=== PATIENT | female | born 1975 | race American Indian/Alaskan Native ===

== ENCOUNTER 2021-08-06 08:20 | Day surgery (SDC) | payer MEDICAID, OTHER ==
[~2021-08-06 08:20] MED LIST: SODIUM CHLORIDE 0.9% IRRIG SOLN 2000 ML IR ONE
[2021-08-06] MEDS ORDERED: LACTATED RINGERS 1,000 ML ONE (08:38)
--- NOTE | 2021-08-06 08:42 | History and Physical Report ---
History of Present Illness Date of examination: 08/06/21 Chief complaint: Dysfunctional uterine bleeding Past History Past Medical History: asthma, other (Obesity) Past Surgical History: section (Gastric sleeve) Social history: other (Significant alcohol and marijuana dependence) Medications and Allergies Allergies Allergy/AdvReac Type Severity Reaction Status Date / Time No Known Allergies Allergy Unverified 11/14/14 12:41 Home Medications Medication Instructions Recorded Confirmed Last Taken Type Albuterol Sulfate [Ventolin HFA] 2 puff IH Q4H PRN 11/14/14 05/05/15 2 Months Ago History ~03/05/15 Ferrous Sulfate [Feosol] 325 mg PO BID 08/02/21 08/02/21 Unknown History Review of Systems All systems: negative (Dysfunctional uterine bleeding) - Physical Exam Breasts: Positive: deferred Cardiovascular: Regular rate Lungs: Positive: Clear to auscultation, Normal air movement Abdomen: Positive: normal appearance, normal bowel sounds Genitourinary (Female): Positive: normal external genitalia, normal perenium Vagina: Positive: normal moisture Uterus: Positive: normal size Anus/Rectum: Positive: normal perianal skin Extremities: Positive: normal Deep Tendon Reflex Grade: Normal +2 Results All other labs normal. Assessment and Plan npo unix consultant to OR for procedure Informed consent obtained Renato Thompson MD
[2021-08-06] MEDS ORDERED: HYDROmorphone 1 MG/1 ML INJ IV PRN ×2 (09:20)
[2021-08-06] MEDS ORDERED: ONDANSETRON 4 MG/2 ML INJ IV PRN (09:20)
--- NOTE | 2021-08-06 09:21 | Anesthesia Day of Surgery ---
Anesthesia Day of Surgery - Day of Surgery Patient Examined: Yes Patient H&P Reviewed: Yes Patient is NPO: Yes
--- NOTE | 2021-08-06 09:22 | Anesthesia Consultation ---
Anesthesia Consult and Med Hx Date of service: 08/06/21 - Airway Anesthetic Teeth Evaluation: Good (Missing) ROM Head & Neck: Adequate Mental/Hyoid Distance: Adequate Mallampati Class: Class III Intubation Access Assessment: Probably Good - Pre-Operative Health Status ASA Pre-Surgery Classification: ASA3 Proposed Anesthetic Plan: General - Pulmonary Hx Smoking: No (Chewed tobacco in past- Quit) Hx Asthma: Yes Hx Sleep Apnea: Yes (CPAP recently delivered-NO TUBING) - Cardiovascular System Hx Hypertension: No Hx Peripheral Vascular Disease: No - Central Nervous System Hx Psychiatric Problems: No - Gastrointestinal Hx Gastroesophageal Reflux Disease: Yes (Occasional, dietary) - Hematic Hx Anemia: Yes Hx Sickle Cell Disease: No - Other Systems Hx Alcohol Use: Yes (PK 18 BEERS/WK) Hx Substance Use: Yes (MARIJUANA- 20 BLOUTS/WK) Hx Cancer: No Hx Obesity: Yes
[2021-08-06] MEDS ORDERED: LACTATED RINGERS 1,000 ML IV SCH (09:30)
[2021-08-06] MEDS ORDERED: MIDAZOLAM 2 MG/2 ML INJ ONE (09:55)
[2021-08-06] MEDS ORDERED: fentaNYL 100 MCG/2 ML INJ ONE (09:55)
[2021-08-06] MEDS ORDERED: propofoL 200 MG/20 ML VIAL IV ONE (09:56)
[2021-08-06] MEDS ORDERED: LIDOCAINE MPF (2%) 20 MG/1 ML VIAL 5 ML ONE (09:57)
[2021-08-06] MEDS ORDERED: SODIUM CHLORIDE 0.9% IRRIG SOLN 2000 ML IR ONE (10:11)
[2021-08-06] MEDS ORDERED: dexAMETHasone 20 MG/5 ML VIAL ONE (10:12)
[2021-08-06] MEDS ORDERED: KETOROLAC 30 MG/1 ML INJ ONE (10:12)
[2021-08-06] MEDS ORDERED: ONDANSETRON 4 MG/2 ML INJ ONE (10:12)
--- NOTE | 2021-08-06 14:53 | Post Anesthesia Evaluation ---
- Post Anesthesia Evaluation Patient Participated: Yes Airway Patent: Yes Stable Respiratory Function: Yes Nausea/Vomiting: No Temp > 96.8F: Yes Pain Manageable: Yes Adequeate Hydration: Yes Anesthesia Complications: No Block Receding Appropriately: Not Applicable Patient on Ventilator: No
[2021-08-06 19:18] VITALS: BP 149/71
--- NOTE | 2021-08-07 09:56 | Operative Report ---
Operative Report Operative Report: Preoperative diagnosis: Menorrhagia,dysfunctional uterine bleeding Postoperative diagnosis, same Procedure hysteroscopy with endometrial ablation Surgeon Dr. Cristina Thompson Assist none Anesthesia GETA Complications none IV fluids 1 L EBL less than 100 mL Urine output 100 mL clear Drains none Procedure: Under general anaesthetic in a dorsal lithotomy position, the patient was prepped and draped in the usual sterile manner. Bimanual exam prior to prepping revealed a mobile, anteverted non-enlarged uterus. A bivalve speculum was placed in the vagina and with the help of a right angle retractor the anterior lip of the cervix was grasped with a single toothed tinaculum and brought forward. Taking care not to enter deep into the uterus, a sound was passed inside to measure the length of the uterus and cervix. This length of the utgerus was found to be __11___ cm. Next, a large Hegar dilator was inserted into the cervical os to measure the cervical length which was __5__ cm. This yielded an endometrial cavity length of _6__. A series of Hegar dilators were then inserted sequentially into the cervical os up to a size of 6 mm. The diagnostic hysteroscope was then introduced into the uterine cavity and the uterus was distended with normal saline fluid. The cavity was examined and found to be normal shape without polyps. Both ostea were visualized. The scope was removed that the cervix was further dilated to 8mm. A curette was introduced into the cavity and a gentle and thorough curettage was performed. The sample was sent to pathology. The novosure device was then opened and tested; the fan deployed easily. The instrument was set to the correct cavity length and introduced into the uterine cavity. The fan was slowly deployed with gentle movements to ensure a snug fit within the cavity. The cavity width read ___3.5_. The measurements were imported and a cavity check was done. The trumpet was then slid down to the cervix and the device was activated. The total burn time was seconds and the power was . The fan was retracted and device removed. The fan was examined and revealed charred tissue. The tenaculum was removed and the cervix examined for hemostasis which was achieved. Finally the speculum was removed. The patient tolerated the procedure well and was brought to the recovery room in a stable condition. At the end of the procedure all sponges and instruments were counted and correct. The blood loss was minimal and there were no complications. Patient's family was notified of her condition at the completion of the procedure. Renato Thompson MD
== END 2021-08-06 08:21 | disposition home or self-care (01) ==
LOC: OR 08:20
PROVIDERS: ATTEND Obstetrics & Gynecology
DX: N92.0 Excessive and frequent menstruation with regular cycle (principal); N93.8 Other specified abnormal uterine and vaginal bleeding; G47.30 Sleep apnea, unspecified; E66.01 Morbid (severe) obesity due to excess calories; K44.9 Diaphragmatic hernia without obstruction or gangrene; G43.909 Migraine, unspecified, not intractable, without status migrainosus; J45.909 Unspecified asthma, uncomplicated; K21.9 Gastro-esophageal reflux disease without esophagitis; D64.9 Anemia, unspecified; M19.90 Unspecified osteoarthritis, unspecified site; Z72.89 Other problems related to lifestyle; Z79.899 Other long term (current) drug therapy; Z68.37 Body mass index [BMI] 37.0-37.9, adult; Z98.51 Tubal ligation status; Z98.891 History of uterine scar from previous surgery; Z87.440 Personal history of urinary (tract) infections; Z98.890 Other specified postprocedural states
CPT/HCPCS: 58563; 81025; J1100; J1885; J2250; J2405; J2704; J3010; J7120